=== PATIENT | male | born 1980 | race Caucasian/White ===

== ENCOUNTER 2025-03-10 15:23 | Emergency (ER) | payer OTHER, SELFPAY ==
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
[2025-03-10 15:41] VITALS: BP 152/85; PULSE 86; RESP 20; TEMP 36.5; O2SAT 95; BMI 32.7
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
[2025-03-10 19:43] VITALS: BP 144/101; PULSE 66; RESP 20; TEMP 36.2; O2SAT 96
[2025-03-10 19:59] VITALS: BP 141/100
[2025-03-10 20:25] VITALS: BP 144/101; PULSE 66; RESP 20; TEMP 36.2; O2SAT 96
== END 2025-03-10 20:26 | disposition home or self-care (01) ==
PROVIDERS: Emergency Provider Internal Medicine
DX: M54.2 Cervicalgia (principal); M79.672 Pain in left foot; M79.671 Pain in right foot; M54.9 Dorsalgia, unspecified; M79.18 Myalgia, other site; V69.88XA Occupant (driver) (passenger) of heavy transport vehicle injured in other specified transport accidents, initial encounter; Y93.89 Activity, other specified; Y92.488 Other paved roadways as the place of occurrence of the external cause; Y99.8 Other external cause status
CPT/HCPCS: 72100; 72125; 73030; 99284

== ENCOUNTER → 2025-03-10 15:45 | Outpatient (BNV) | payer SELFPAY | PROVIDERS: Visit Provider Radiology Diagnostic Radiology | DX: M50.322 Other cervical disc degeneration at C5-C6 level (principal); M54.50 Low back pain, unspecified; M25.511 Pain in right shoulder | CPT/HCPCS: 72100; 72125; 73030 ==